=== PATIENT | female | born 1980 | race American Indian/Alaskan Native ===

== ENCOUNTER 2019-06-07 09:03 | Emergency (ER) | payer MEDICAID ==
[~2019-06-07] VITALS: Ht 167.6 cm; Wt 159.2 kg
[~2019-06-07 09:03] MED LIST: TRAM50TA2 PO
[2019-06-07 09:10] VITALS: BP 140/71
== END 2019-06-07 12:05 | disposition home or self-care (01) ==
LOC: ER 09:04
DX: M25.562 Pain in left knee (principal); Z98.84 Bariatric surgery status; Z88.1 Allergy status to other antibiotic agents; W18.49XA Other slipping, tripping and stumbling without falling, initial encounter; Y93.01 Activity, walking, marching and hiking; Y92.89 Other specified places as the place of occurrence of the external cause; Y99.9 Unspecified external cause status
CPT/HCPCS: 29505; 99284

== ENCOUNTER 2019-11-16 20:17 | Emergency (ER) | payer MEDICAID, OTHER ==
[~2019-11-16] VITALS: Ht 167.6 cm; Wt 160.0 kg
--- NOTE | 2019-11-16 20:48 | NUR ---
sling placed on patients left arm. pt going to ct
[2019-11-16] MEDS ORDERED: HYDROcodone/acetaminophen 5mg/325mg tablet PO ONE (21:00)
[2019-11-16 21:01] LABS: BASOPHILS # (AUTO) 0.1 X10'3 (0-0.2); BASOPHILS % (AUTO) 0.9 % (0-1); EOSINOPHILS # (AUTO) 0.1 X10'3 (0-0.9); EOSINOPHILS % (AUTO) 1.6 % (0-6); HEMATOCRIT 31.8 % (35.0-45.0); HEMOGLOBIN 10.1 g/dl (12.0-16.0); LYMPHOCYTES % (AUTO) 40.8 % (21-51); MEAN CORPUSCULAR HEMOGLOBIN 23.2 PG (27.0-31.0); MEAN CORPUSCULAR HGB CONC 31.7 g/dL (33.0-36.5); MEAN CORPUSCULAR VOLUME 73.1 FL (78-98); MEAN PLATELET VOLUME 7.9 FL (7.4-10.4); MONOCYTES # (AUTO) 0.4 X10'3 (0-0.9); MONOCYTES % (AUTO) 5.2 % (2-12); NEUTROPHILS # (AUTO) 3.7 X10'3 (1.8-7.7); NEUTROPHILS % (AUTO) 51.5 % (42-75); PLATELET COUNT 323 X10'3 (140-440); RED BLOOD COUNT 4.35 X10'6 (4.20-5.60); WHITE BLOOD COUNT 7.2 X10'3 (4.5-11.0)
[2019-11-16 21:15] LABS: ALANINE AMINOTRANSFERASE 25 U/L (12-78); ALBUMIN 3.7 G/DL (3.4-5.0); ALKALINE PHOSPHATASE 56 IU/L (46-116); ANION GAP 7 (8-16); ASPARTATE AMINO TRANSFERASE 12 U/L (10-37); BILIRUBIN,TOTAL 0.3 MG/DL (0.1-1.0); BLOOD UREA NITROGEN 14 MG/DL (7-18); BUN/CREATININE RATIO 14.1 (6.6-38.0); CALCIUM 8.3 MG/DL (8.5-10.1); CHLORIDE 104 MMOL/L (99-107); CREATININE 0.99 MG/DL (0.40-0.90); GLUCOSE 179 MG/DL (70-104); LIPASE 108 U/L (73-393); SODIUM 139 MMOL/L (135-145); TOTAL CARBON DIOXIDE 28.1 MMOL/L (24-32); TOTAL PROTEIN 7.3 G/DL (6.4-8.2); eGFR 63 ML/MIN
[2019-11-16] MEDS ORDERED: ketorolac tromethamine 15mg/ml inj. IM ONE (21:20)
[2019-11-16 21:34] LABS: URINE HCG NEGATIVE (NEG)
[2019-11-16 21:36] LABS: CLARITY,URINE SLIGHTLY CLOUDY (Clear); COLOR,URINE YELLOW (Yellow); GLUCOSE, URINE NEGATIVE (Neg); KETONES,URINE TRACE mg/dl (Neg); LEUKOCYTE ESTERASE ,URINE NEGATIVE (Neg); NITRITES, URINE NEGATIVE (Neg); OCCULT BLOOD,URINE NEGATIVE (Neg); PROTEIN,URINE NEGATIVE (Neg)
[2019-11-16 21:48] LABS: UA COLLECTION TYPE CLN CATCH MIDSTREAM
[2019-11-16 21:50] LABS: BACTERIA,URINE FEW /HPF (Neg); RBC,URINE NONE SEEN /HPF (0-2); SQUAMOUS EPITHELIAL CELL,UR MODERATE /LPF (FEW); WBC,URINE 0-4 /HPF (0-4)
--- NOTE | 2019-11-16 22:35 | NUR ---
Imer George notified (IMER harper left), pt requesting vicodin until wednesday. Per Ariel, pt encouraged to take tylenol or ibuprofen. pt verbalizes understanding.
[2019-11-16 22:36] VITALS: BP 152/91
== END 2019-11-16 22:38 | disposition home or self-care (01) ==
LOC: ER 20:18
DX: R10.84 Generalized abdominal pain (principal); R10.32 Left lower quadrant pain; R10.31 Right lower quadrant pain; M54.5 Low back pain; R11.2 Nausea with vomiting, unspecified; Z98.0 Intestinal bypass and anastomosis status; Z88.0 Allergy status to penicillin; Z79.899 Other long term (current) drug therapy
CPT/HCPCS: 36415; 80053; 81001; 81025; 83690; 85025; 96372; 99283; J1885

== ENCOUNTER 2020-07-22 09:59 | Emergency (ER) | payer BC, MEDICAID, OTHER ==
[~2020-07-22] VITALS: Ht 167.6 cm; Wt 131.8 kg
--- NOTE | 2020-07-22 10:11 | NUR ---
TO XRAY OF WRIST
--- NOTE | 2020-07-22 10:33 | NUR ---
patietn able to move fingers and thumb, denies numbness and tingling when patient moves wrist up and down, hurts near red area
[2020-07-22] MEDS ORDERED: HYDROcodone/acetaminophen 10/325mg tab PO ONE (10:50)
[2020-07-22] MEDS ORDERED: cephalexin 500mg capsule PO ONE (11:10)
[2020-07-22 11:22] VITALS: BP 144/83
[2020-07-22 11:39] LABS: BASOPHILS % (AUTO) 0.6 % (0-1); EOSINOPHILS # (AUTO) 0.1 X10'3 (0-0.9); EOSINOPHILS % (AUTO) 1.2 % (0-6); HEMATOCRIT 33.7 % (35.0-45.0); HEMOGLOBIN 10.5 g/dl (12.0-16.0); LYMPHOCYTES # (AUTO) 2.4 X10'3 (1.1-4.8); LYMPHOCYTES % (AUTO) 29.2 % (21-51); MEAN CORPUSCULAR HEMOGLOBIN 24.2 PG (27.0-31.0); MEAN CORPUSCULAR HGB CONC 31.3 g/dL (33.0-36.5); MEAN CORPUSCULAR VOLUME 77.3 FL (78-98); MEAN PLATELET VOLUME 8.2 FL (7.4-10.4); MONOCYTES # (AUTO) 0.6 X10'3 (0-0.9); MONOCYTES % (AUTO) 7.3 % (2-12); NEUTROPHILS % (AUTO) 61.7 % (42-75); PLATELET COUNT 332 X10'3 (140-440); RED BLOOD COUNT 4.36 X10'6 (4.20-5.60); RED CELL DISTRIBUTION WIDTH 18.6 % (11.5-14.5); WHITE BLOOD COUNT 8.1 X10'3 (4.5-11.0)
[2020-07-22 12:19] LABS: ANISOCYTOSIS 2+; ELLIPTOCYTES 1+; HYPOCHROMASIA 1+; MICROCYTOSIS 1+; PLATELET ESTIMATE NORMAL; POLYCHROMASIA FEW; STOMATOCYTES FEW
[2020-07-22] MEDS ORDERED: CEPH500C5 PO (12:35)
[2020-07-22] MEDS ORDERED: HYDR-3965 PO (12:35)
== END 2020-07-22 13:01 | disposition home or self-care (01) ==
LOC: ER 10:00
DX: L03.113 Cellulitis of right upper limb (principal); M25.531 Pain in right wrist; R73.03 Prediabetes; Z86.2 Personal history of diseases of the blood and blood-forming organs and certain disorders involving the immune mechanism; Z98.891 History of uterine scar from previous surgery; Z98.84 Bariatric surgery status; Z88.1 Allergy status to other antibiotic agents; Z79.2 Long term (current) use of antibiotics; Z79.899 Other long term (current) drug therapy
CPT/HCPCS: 29125; 36415; 73110; 85008; 85025; 85651; 86140; 99284

== ENCOUNTER 2020-07-23 09:54 | Emergency (ER) | payer MEDICAID, OTHER ==
[~2020-07-23] VITALS: Ht 167.6 cm; Wt 133.5 kg
[~2020-07-23 09:54] MED LIST changes: +CEPH500C5 PO; +HYDR-3965 PO
[2020-07-23 10:03] VITALS: BP 128/62
== END 2020-07-23 11:47 | disposition home or self-care (01) ==
LOC: ER 09:54
DX: M25.531 Pain in right wrist (principal); L03.113 Cellulitis of right upper limb; Z48.00 Encounter for change or removal of nonsurgical wound dressing; Z86.2 Personal history of diseases of the blood and blood-forming organs and certain disorders involving the immune mechanism; Z98.84 Bariatric surgery status; Z88.1 Allergy status to other antibiotic agents; Z79.2 Long term (current) use of antibiotics; Z79.899 Other long term (current) drug therapy
CPT/HCPCS: 99281

== ENCOUNTER 2022-02-05 10:27 | Emergency (ER) | payer MEDICAID ==
[~2022-02-05] VITALS: Ht 167.6 cm; Wt 156.8 kg
[~2022-02-05 10:27] MED LIST changes: -CEPH500C5 PO; -HYDR-3965 PO
[2022-02-05 10:39] VITALS: BP 177/97
[2022-02-05] MEDS ORDERED: BENZ-38 PO (11:38)
[2022-02-05] MEDS ORDERED: GUAI400T92 PO (11:38)
== END 2022-02-05 11:55 | disposition home or self-care (01) ==
LOC: ER 10:27
DX: R05.9 Cough, unspecified (principal); R07.89 Other chest pain; R09.81 Nasal congestion; Z86.2 Personal history of diseases of the blood and blood-forming organs and certain disorders involving the immune mechanism; Z98.890 Other specified postprocedural states; Z88.1 Allergy status to other antibiotic agents; Z79.899 Other long term (current) drug therapy
CPT/HCPCS: 99283

== ENCOUNTER 2024-09-27 17:31 | Emergency (ER) | payer MEDICAID ==
[~2024-09-27] VITALS: Ht 170.2 cm; Wt 147.0 kg
[~2024-09-27 17:31] MED LIST changes: +GUAI400T92 PO
[2024-09-27] MEDS ORDERED: ketorolac trometh 15mg/ml vial 15 MG/ML ML IM ONE (19:15)
[2024-09-27] MEDS: ketorolac trometh 30MG/ML vial 30 MG/ML VIAL IM ONE (19:22)
[2024-09-27] MEDS ORDERED: HYDR-3965 PO (19:22)
[2024-09-27] MEDS ORDERED: IBUP-864 PO (19:22)
[2024-09-27] MEDS ORDERED: METH-798 PO (19:22)
[2024-09-27 19:31] VITALS: BP 146/86; PULSE 78; RESP 18; O2SAT 98
[2024-09-27 19:32] VITALS: TEMP 97.4
== END 2024-09-27 19:33 | disposition home or self-care (01) ==
LOC: ER 17:32
DX: M25.511 Pain in right shoulder (principal); M25.512 Pain in left shoulder; M54.50 Low back pain, unspecified; Z98.84 Bariatric surgery status; V43.52XA Car driver injured in collision with other type car in traffic accident, initial encounter; Y93.89 Activity, other specified; Y92.410 Unspecified street and highway as the place of occurrence of the external cause; Y99.8 Other external cause status
CPT/HCPCS: 96372; 99283; J1885